=== PATIENT | female | born 1990 | race Caucasian/White ===

== ENCOUNTER 2021-02-06 12:11 | Emergency (ER) | payer OTHER, SELFPAY ==
[2021-02-06 12:11] VITALS: BP 124/95; PULSE 71; RESP 16; TEMP 36.4; O2SAT 100; BMI 24.2
[2021-02-06 12:30] VITALS: BP 119/83; PULSE 53; RESP 15; O2SAT 100
--- NOTE | 2021-02-06 13:24 | EDS_ITS ---
HPI History of Present Illness Chief Complaint: Dental Informant: patient Onset/Context/Timing Onset: Today Narrative Narrative: Patient is a 30-year-old female presenting with dental pain. She states she woke up with pain in her left back molar. She is worried she cracked it in her sleep. She is not exactly sure how she would have done that. She is not sure if she grinds her teeth. She took Motrin at 10 AM which is helping her pain. She does not currently have a dentist. She does smoke cigarettes. She denies any difficulty swallowing but notes it is painful. No reported fever. No swelling. No difficulty speaking. No other complaints at this time. Patient did have to leave work because of her pain. PFSH PFSH Medical History Smoker Home Medications amoxicillin-pot clavulanate [Augmentin] 1 tab PO BID #20 tab 02/06/21 [Rx Last Taken Unknown] ibuprofen 600 mg PO Q6H PRN PRN #20 tab 02/06/21 [Rx Last Taken Unknown] Allergy/AdvReac Type Severity Reaction Status Date / Time No Known Allergies Allergy Verified 02/06/21 12:13 Social History Smoking Status: Current every day smoker tobacco type: cigarettes and e- cigarettes ROS ROS ED Constitutional Constitutional ED: Denies chills or fever(s) Eyes Eyes: Denies change in vision ENT ENT ED: Reports other Details: left upper molar pain Cardiovascular Cardiovascular: Denies chest pain Respiratory/Chest Respiratory/Chest: Denies dyspnea Gastrointestinal Gastrointestinal: Denies nausea or vomiting Integumentary Denies rash Neurologic Neurologic: Reports headache(s); Denies weakness EXAM Physical Exam Const Vital Signs: 02/06/21 12:11 02/06/21 12:30 02/06/21 13:50 Temperature 97.6 F L Temperature Source Temporal Pulse Rate 71 53 L 68 Respiratory Rate 16 15 15 Blood Pressure 124/95 H 119/83 H Blood Pressure Mean 104 95 Pulse Ox 100 100 100 Oxygen Delivery Method Room Air Room Air Positive well nourished and well developed General Appearance ED: well developed HEENT Reports TM's clear HEENT Narrative: No tenderness over the TMJ. Small crack over the posterior aspect of the left back molar. Mild associated tenderness. No associated abscess. Sublingual mucosa is soft. Patient has a small circumferential area of white discoloration and tenderness over her palate on the right side. No other lesions noted. Tympanic Membrane ED: Yes TM's clear Mouth ED: Yes lips normal and Yes tongue normal Mouth: lips normal and tongue normal Eyes PERRL and EOMs intact bilaterally Neck supple Lymph Lymphatic: no lymphadenopathy noted Chest Wall inspection of chest normal Resp normal respiratory effort Cardio regular rate and regular rhythm Extremity normal to inspection Neuro oriented x3 Sensorium / Orientation: alert Motor Exam: Negative for general weakness Psych mental status grossly normal Skin no rashes or lesions noted MDM MDM MDM Narrative Medical decision making narrative: Patient evaluated for 1 day dental pain. She does have a small crack in her back molar. There does not appear to be any exposed pulp. No associated abscess. Patient will be started empirically on antibiotics and given Motrin for pain control. Given referral for dental follow-up. Patient is counseled on signs and symptoms requiring return to the emergency room. Patient verbalizes agreement and understand this plan. Patient discharged home in stable and improved condition. Given work note per her request. Discharge Plan Triage Chief Complaint: Dental ED Provider: Nargis Luna Dx/Rx/DC Orders Clinical Impression: Chipped tooth, Dentalgia Instructions: ED Dental Pain Prescriptions: New amoxicillin-pot clavulanate [Augmentin] 875-125 mg tablet 1 tab PO BID Qty: 20 RF: 0 ibuprofen 600 mg tablet 600 mg PO Q6H PRN PRN (Reason: fever or pain) Qty: 20 RF: 0 Primary Care Provider: Care Physician,No Primary Referrals: Ruba Vela [NON-STAFF] - Care Physician,No Primary [Primary Care Provider] - Disposition Disposition: Home, Self Care Discharge Date/Time: 02/06/21 13:51
--- NOTE | 2021-02-06 13:24 | CM.ED ---
KURT Note Referral Source:Case Find Referral Reason: No PCP ([facility]) KURT met with patient. She confirmed that she had no PCP. KURT provided her with sakina's directory of MD's at [facility]. KURT remains available if additional needs arise. Plan: PCP list provided Camryn MICHEL
[2021-02-06 13:50] VITALS: PULSE 68; RESP 15; O2SAT 100
== END 2021-02-06 13:51 | disposition home or self-care (01) ==
PROVIDERS: Emergency Provider Emergency Medicine
DX: K08.89 Other specified disorders of teeth and supporting structures (principal); S02.5XXA Fracture of tooth (traumatic), initial encounter for closed fracture; F17.210 Nicotine dependence, cigarettes, uncomplicated; X58.XXXA Exposure to other specified factors, initial encounter; Y93.84 Activity, sleeping; Y92.003 Bedroom of unspecified non-institutional (private) residence as the place of occurrence of the external cause; Y99.8 Other external cause status
CPT/HCPCS: 99282